=== PATIENT | male | born 1985 | race Caucasian/White ===

== ENCOUNTER 2016-08-08 20:14 | Emergency (ER) | payer SELFPAY ==
[2016-08-08 20:14] VITALS: BMI 26.6
[2016-08-08] MEDS ORDERED: Sodium Chloride 0.9% 1,000 ML IV ONE (22:02)
[2016-08-08] MEDS ORDERED: Sodium Chloride 0.9% 1,000 ML ONE (22:23)
[2016-08-08 22:36] LABS: BASO % 0.5 % (0.0-2.0); EOS % 0.3 % (0.0-4.0); HEMATOCRIT 42.1 % (35.0-51.0); LYMPH % 24.2 % (20.0-40.0); MEAN CORPUSCULAR HEMOGLOBIN 28.9 pg (27.0-31.0); MEAN CORPUSCULAR HGB CONC 32.8 g/dL (33.0-37.0); MEAN PLATELET VOLUME 7.8 fL (7.2-11.7); MONO # 0.7 K/uL (0.0-0.8); MONO % 7.8 % (0.0-10.0); RED CELL DISTRIBUTION WIDTH 12.8 % (11.5-14.5); WHITE BLOOD COUNT 8.4 K/uL (4.8-10.8)
[2016-08-08 22:44] LABS: CHLORIDE 94 mmol/L (98-107); POTASSIUM 3.8 mmol/L (3.6-5.2); SODIUM 137 mmol/L (132-148)
[2016-08-08 22:46] LABS: GFR AFRICAN-AMERICAN > 60
[2016-08-08 22:47] LABS: ALB/GLOB RATIO 1.2 (1.0-2.1); ALKALINE PHOSPHATASE 50 U/L (38-126); ALT/SGPT 35 U/L (21-72); AST/SGOT 36 U/L (17-59); BILIRUBIN,TOTAL 1.1 mg/dL (0.2-1.3); BLOOD UREA NITROGEN 18 mg/dL (9-20); CALCIUM 9.3 mg/dl (8.6-10.4); CARBON DIOXIDE 26 mmol/L (22-30); GLUCOSE,RANDOM 97 mg/dL (75-110); TOTAL PROTEIN 8.2 g/dL (6.3-8.3)
[2016-08-08] MEDS ORDERED: Sodium Chloride 0.9% 500 ML IV ONE (23:39)
[2016-08-09 01:52] VITALS: BP 122/71; PULSE 77; RESP 16; TEMP 98.7; O2SAT 97
--- NOTE | 2016-08-09 02:06 | C.PDOC ---
Time Seen by Provider: 08/08/16 21:54 Chief Complaint (Nursing): GI Problem History Per: Patient, Family Onset/Duration Of Symptoms: Hrs (TODAY) Current Symptoms Are (Timing): Still Present Severity: Moderate Quality Of Discomfort: Cramping, "Pain" Associated Symptoms: Nausea, Vomiting, Diarrhea Exacerbating Factors: Food Alleviating Factors: None Last Bowel Movement: Today Recent travel outside of the [place]: No Additional History Per: Prior Records Past Medical History Reviewed: Historical Data, Nursing Documentation, Vital Signs Vital Signs: Last Vital Signs Temp 98.7 F 08/09/16 01:51 Pulse 77 08/09/16 01:51 Resp 16 08/09/16 01:51 BP 122/71 08/09/16 01:51 Pulse Ox 97 08/09/16 01:51 - Medical History PMH: Gastritis Surgical History: No Surg Hx - [facility] Procedures INJECT/INFUSE NEC (04/12/14) Family History: States: Unknown Family Hx - Social History Hx Tobacco Use: No Hx Alcohol Use: Yes Hx Substance Use: Yes - Immunization History Hx Tetanus Toxoid Vaccination: Yes Hx Influenza Vaccination: No Hx Pneumococcal Vaccination: No Review Of Systems Except As Marked, All Systems Reviewed And Found Negative. Constitutional: Negative for: Fever Cardiovascular: Negative for: Chest Pain Respiratory: Negative for: Shortness of Breath Gastrointestinal: Positive for: Nausea, Vomiting, Abdominal Pain, Diarrhea. Negative for: Melena, Hematochezia, Hematemesis Musculoskeletal: Negative for: Neck Pain, Back Pain Skin: Negative for: Rash Neurological: Negative for: Weakness, Numbness, Seizures, Altered Mental Status Physical Exam - Physical Exam Appears: Non-toxic Skin: Normal Color, Warm, Dry Head: Atraumatic, Normacephalic Eye(s): bilateral: PERRL, EOMI Oral Mucosa: Moist Neck: Normal ROM, Supple Cardiovascular: Rhythm Regular Respiratory: Normal Breath Sounds, No Accessory Muscle Use Gastrointestinal/Abdominal: Soft, Tenderness (nonspecific), No Distention, No Guarding, No Rebound Back: No CVA Tenderness Extremity: Normal ROM Neurological/Psych: Oriented x3, Normal Motor, Normal Sensation ED Course And Treatment - Laboratory Results Result Diagrams: 08/08/16 22:25 08/08/16 22:25 Lab Interpretation: No Acute Changes O2 Sat by Pulse Oximetry: 97 Pulse Ox Interpretation: Normal Progress Note: Pt feels much better and wants to go home. No abdominal pain. Tolerating PO. Reassessment Condition: Improved Progress - Interventions Interventions:: Observation, Intravenous fluid - Medications Administered Intravenous: Antiemetic, H-2 maxi - Data Reviewed Data Reviewed: Lab, Old records - Patient Status Patient status: Mostly improved - Continuity of Care Discussed patient case with:: Patient, Family-HIPPA compliant, ED Nurse - Patient Plan Patient Plan: Discharge, F/U with PCP Disposition Counseled Patient/Family Regarding: Studies Performed, Diagnosis, Need For Followup, Rx Given - Disposition Referrals: [facility] [Outside] Disposition: HOME/ ROUTINE Disposition Time: 02:06 Condition: IMPROVED Additional Instructions: Drink plenty of fluids. Follow up with your doctor or in the clinic. Return to the ER if you develop fever, not tolerating fluids, worsening of symptoms or if you have any other concerns. Prescriptions: Famotidine [Pepcid] 20 mg PO BID #30 tab Ondansetron [Zofran] 4 mg PO Q8H PRN #15 tab PRN Reason: Nausea/Vomiting Instructions: Gastroenteritis (ED) - Clinical Impression Clinical Impression: Abdominal pain, Nausea, vomiting, and diarrhea
== END 2016-08-09 02:19 | disposition home or self-care (01) ==
LOC: C.ER 20:14
DX: R11.2 Nausea with vomiting, unspecified (principal); R19.7 Diarrhea, unspecified; R10.9 Unspecified abdominal pain
CPT/HCPCS: 80053; 82948; 83690; 85025; 96361; 96374; 96375; 99285; J2405; J2765; J7040

== ENCOUNTER 2017-07-05 12:04 | Emergency (ER) | payer OTHER ==
[2017-07-05 12:05] VITALS: BMI 26.6
--- NOTE | 2017-07-05 13:27 | C.PDOC ---
History Of Present Illness 32 y/o male with hx of right 4th metatarsal fx in 2008, s/p cast x 2 months; pt sts 'bone popped out of place' right after cast removed and never followed up. pt c/o right hand and middle finger pain and swelling x 1 day s/p hand getting knocked around in a basketball game, unable to move right middle finger. Time Seen by Provider: 07/05/17 12:59 Chief Complaint (Nursing): Finger,Hand,&Wrist History Per: Patient History/Exam Limitations: no limitations Onset/Duration Of Symptoms: Days (1) Current Symptoms Are (Timing): Still Present Quality: "Pain" Severity: Moderate Past Medical History Reviewed: Historical Data, Nursing Documentation, Vital Signs Vital Signs: Last Vital Signs Temp 97.7 F 07/05/17 14:47 Pulse 56 L 07/05/17 14:47 Resp 20 07/05/17 14:47 BP 132/87 07/05/17 14:47 Pulse Ox 99 07/07/17 08:57 - Medical History PMH: Gastritis - [facility] Procedures INJECT/INFUSE NEC (04/12/14) Family History: States: Unknown Family Hx - Social History Hx Tobacco Use: No Hx Alcohol Use: Yes Hx Substance Use: Yes - Immunization History Hx Tetanus Toxoid Vaccination: Yes Hx Influenza Vaccination: No Hx Pneumococcal Vaccination: No Review Of Systems Constitutional: Negative for: Fever Musculoskeletal: Positive for: Hand Pain (right) Skin: Negative for: Lesions Neurological: Negative for: Weakness, Numbness Physical Exam - Physical Exam Appears: Non-toxic, No Acute Distress Skin: Warm, Dry, No Ecchymosis Extremity: Capillary Refill (less than 2 seconds), Other (mild deformity noted on dorsum of right hand, (chronic per pt), with no swelling, tenderness and decreased rom of third right finger, from other 4 fingers, from at wrist, non tender ) Pulses: Right Radial: Normal Neurological/Psych: Oriented x3, Normal Speech, Normal Cognition ED Course And Treatment O2 Sat by Pulse Oximetry: 99 - Other Rad right hand X-Ray: Viewed By Me, Read By Radiologist Interpretation: No evidence of acute fracture or dislocation. Soft tissue swelling. Orthopedic Time Performed: 14:20 Time Out: Side verified, Site verified Procedure: Splint Type: Volar Location: Right, Hand Consent obtained: Verbal Performed by: Mid-level Provider (done by cp, checked by me) Diagnosis: Sprain Location: Right, Volar (hand) Capillary refill: Normal Distal Sensation: Normal Distal Motor Function: Normal Capillary Refill: Normal Compartment: Normal Distal Sensation: Normal Distal Motor Function: Normal Medical Decision Making Medical Decision Making: pt with 3rd finger pain with dec rom, renee tender on palmar surface, possible tednon injury. splint placed, pt to f/u with hand or ortho. Disposition Counseled Patient/Family Regarding: Studies Performed, Diagnosis, Need For Followup, Rx Given - Disposition Referrals: Zuhair Rodarte MD [Staff Provider] - Martin Bernard MD [Staff Provider] - Disposition: HOME/ ROUTINE Disposition Time: 15:05 Condition: STABLE Additional Instructions: Please wear splint for next few days; you need to follow up with orthopedist and /or hand specialist in the next few days for further evaluation. MOtrin for pain if needed. Prescriptions: Ibuprofen [Motrin] 600 mg PO TID #30 tab Instructions: Patience Clement (DC) Forms: General Discharge Instructions, [facility] (Kazakh) - Clinical Impression Clinical Impression: Injury of right middle finger
--- NOTE | 2017-07-05 13:37 | RAD ---
PROCEDURE: Right Hand Radiographs. HISTORY: pain to 3rd finger, hx of 4th metacarpal fx COMPARISON: None. FINDINGS: BONES: No evidence of acute fracture. Deformity noted in the 4th metacarpal bone suggestive of old fracture. JOINTS: Normal. No osteoarthritic changes. SOFT TISSUES: Soft tissue swelling more prominent at the 3rd finger. OTHER FINDINGS: None. IMPRESSION: No evidence of acute fracture or dislocation. Soft tissue swelling.
[2017-07-05 14:48] VITALS: BP 132/87; PULSE 56; RESP 20; TEMP 97.7
[2017-07-05 15:05] VITALS: O2SAT 99
== END 2017-07-05 15:31 | disposition home or self-care (01) ==
LOC: C.ER 12:04
DX: S69.91XA Unspecified injury of right wrist, hand and finger(s), initial encounter (principal); W51.XXXA Accidental striking against or bumped into by another person, initial encounter; Y93.67 Activity, basketball; Y99.8 Other external cause status